=== PATIENT | female | born 1995 | race African-American/Black ===

== ENCOUNTER 2016-12-23 10:13 | Outpatient (CLI) | payer OTHER, MEDICAID ==
[2016-12-23 11:05] LABS: Hematocrit 40.9 % (30.3-42.9); Hemoglobin 14.2 gm/dl (10.1-14.3); Mean Corpuscular HGB Conc 35 % (30-34); Mean Corpuscular Hemoglobin 30 pg (28-32); Mean Corpuscular Volume 87 fl (79-97); Platelet Count 187 K/mm3 (140-440); Red Cell Distribution Width 14.3 % (13.2-15.2); White Blood Count 10.5 K/mm3 (4.5-11.0)
[2016-12-23 11:14] LABS: Bacteria,Urine 2+ /HPF (Negative); Bilirubin,Urine NEG (Negative); Blood,Urine NEG (Negative); Ketones,Urine NEG (Negative); Leukocyte Esterase,Urine LG (Negative); Nitrite,Urine NEG (Negative); Protein,Urine <15 mg/dL mg/dL (Negative); Urobilinogen,Urine < 2.0 mg/dL (<2.0)
[2016-12-23 11:23] LABS: Lactate Dehydrogenase 220 units/L (91-180); Uric Acid 3.7 mg/dL (3.5-7.6)
[2016-12-23 11:38] LABS: Alanine Aminotransferase 13 units/L (7-56)
[2016-12-23 12:34] VITALS: BP 129/75
== END 2016-12-23 12:45 | disposition home or self-care (01) ==
LOC: TRG 10:13
PROVIDERS: ATTEND Obstetrics & Gynecology
DX: O47.1 False labor at or after 37 completed weeks of gestation (principal); Z3A.38 38 weeks gestation of pregnancy
CPT/HCPCS: 36415; 59025; 81001; 82565; 83615; 84450; 84460; 84550; 85027

== ENCOUNTER 2016-12-30 04:51 | Inpatient (IN) | payer BC, MEDICAID ==
--- NOTE | 2016-12-29 16:32 | History and Physical Report ---
History of Present Illness Date of examination: 12/23/16 History of present illness: Past Medical History: Reviewed history from 10/29/2013 and no changes required: Negative Past Medical History Past Surgical History: Reviewed history from 07/04/2014 and no changes required: Cyst on face removed (09/2012) (07/04/2014) Past Medical History Abnormal PAP: negative KENNY Exposure: negative Infertility: negative Uterine Anomaly: negative Uterine Surgery (not C/S): negative Other Gynecologic Problems: negative Social Hx: Patient is single Customer Service Infection History Hx of STD: none HIV Risk Eval: low risk Hepatitis B Risk Eval: low risk Personal hx. of genital herpes: no Partner hx. of genital herpes: no Rash, Viral, or Febrile illness since last LMP? no Varicella/Chicken Pox Status: Previous Disease TB Risk: no Genetic History Congenital Heart Defect: Mom: no Dad: no John Disease: Mom: no Dad: no Thalassemia Mom: no Dad: no Neural Tube Defect Mom: no Dad: no Down's Syndrome Mom: no Dad: no Mayo-Sachs Mom: no Dad: no Sickle Cell Disease/Trait Mom: no Dad: no Hemophilia Mom: no Dad: no Muscular Dystrophy Mom: no Dad: no Cystic Fibrosis Mom: no Dad: no [place] Chorea Mom: no Dad: no Mental Retardation Mom: no Dad: no Fragile X Mom: no Dad: no Other Genetic/Chromosomal Disorder Mom: no Dad: no Child w/other defect Mom: no Dad: no Enviromental Exposures Xray Exposure: no Medication, drug, or alcohol use since LMP: no Chemical/Other Exposure: no Exposure to Cat Liter: no Hx of Parvovirus (Fifth Disease): no Occupational Exposure to Children: none FALSECurrent Allergies (reviewed today): * SEAFOOD (Critical) Past History - Obstetrical History Expected Date of Delivery: 01/05/17 Actual Gestation: 39 Week(s) 0 Day(s) : 2 Medications and Allergies Allergies Allergy/AdvReac Type Severity Reaction Status Date / Time shellfish derived Allergy Rash Verified 10/01/13 11:18 Home Medications Medication Instructions Recorded Confirmed Last Taken Type Vit#96/Ferrous Fum/FA 1 each PO QDAY 07/02/14 12/23/16 07/01/14 History [ Tablet] Active Meds: Active Medications Citric Acid/Sodium Citrate (Bicitra) 30 ml PO ONCE ONE Stop: 12/30/16 05:31 Famotidine (Pepcid) 20 mg IV ONCE ONE Stop: 12/30/16 05:31 Oxytocin/Sodium Chloride (Pitocin/Ns 20 Unit/1000ml Drip) 20 units in 1,000 mls @ 0 mls/hr IV TITR ANABEL PRN Reason: As Directed Metoclopramide HCl (Reglan) 10 mg IV ONCE ONE Stop: 12/30/16 05:31 Results All other labs normal. Assessment and Plan - Patient Problems (1) 39 weeks gestation of Status: Acute (2) Maternal care for scar from previous delivery Status: Acute Qualifiers: Previous delivery type: P (3) Gestational diabetes mellitus Status: Acute Qualifiers: Gestational diabetes mellitus control: G Trimester: T
[2016-12-30] MEDS ORDERED: REGLAN IV ONE (05:30)
[2016-12-30] MEDS ORDERED: BICITRA PO ONE (05:30)
[2016-12-30] MEDS ORDERED: PITOCin/NS 20 UNIT/1000ML DRIP 20 UNITS/1,000 ML BAG IV SCH ×2 (05:30→11:00)
[2016-12-30] MEDS ORDERED: ANCEF/STERILE WATER 2 GM/20 ML 2 GM/20 ML SYRINGE IV NR (05:30)
[2016-12-30] MEDS ORDERED: PEPCID IV ONE (05:30)
[2016-12-30] MEDS ORDERED: LACTATED RINGERS 1,000 ML ONE (05:47)
[2016-12-30 06:02] LABS: Basophils % (Auto) 0.4 % (0.0-1.8); Eosinophils % (Auto) 1.5 % (0.0-4.3); Hematocrit 40.2 % (30.3-42.9); Hemoglobin 13.9 gm/dl (10.1-14.3); Mean Corpuscular HGB Conc 35 % (30-34); Mean Corpuscular Hemoglobin 30 pg (28-32); Mean Corpuscular Volume 88 fl (79-97); Platelet Count 199 K/mm3 (140-440); Red Blood Count 4.59 M/mm3 (3.65-5.03); Red Cell Distribution Width 14.6 % (13.2-15.2); White Blood Count 11.4 K/mm3 (4.5-11.0)
[2016-12-30] MEDS: LACTATED RINGERS 1,000 ML IV SCH ×2 (06:23→06:29)
--- NOTE | 2016-12-30 07:18 | Anesthesia Consultation ---
Anesthesia Consult and Med Hx Date of service: 12/30/16 - Airway Anesthetic Teeth Evaluation: Good ROM Head & Neck: Adequate Mental/Hyoid Distance: Adequate Mallampati Class: Class II Intubation Access Assessment: Probably Good - Pre-Operative Health Status ASA Pre-Surgery Classification: ASA2 Proposed Anesthetic Plan: Spinal - Pulmonary Hx Smoking: No Hx Asthma: No COPD: No Hx Pneumonia: No - Cardiovascular System Hx Hypertension: Yes Hx Heart Murmur: Yes - Central Nervous System Hx Seizures: No Hx Psychiatric Problems: No - Gastrointestinal Hx Gastroesophageal Reflux Disease: No - Endocrine Hx Renal Disease: No Hx End Stage Renal Disease: No Hx Hypothyroidism: No Hx Hyperthyroidism: No - Hematic Hx Anemia: No Hx Sickle Cell Disease: No - Other Systems Hx Alcohol Use: No Hx Obesity: No
--- NOTE | 2016-12-30 07:18 | Anesthesia Day of Surgery ---
Anesthesia Day of Surgery - Day of Surgery Patient Examined: Yes Patient H&P Reviewed: Yes Patient is NPO: Yes
[2016-12-30] MEDS ORDERED: BENADRYL IV PRN (07:30)
[2016-12-30] MEDS ORDERED: MORPHINE ONE (07:33)
[2016-12-30] MEDS ORDERED: ePHEDrine SULFATE ONE (07:47)
[2016-12-30] MEDS ORDERED: NACL 0.9% IR ONE (07:55)
[2016-12-30] MEDS ORDERED: WATER FOR IRRIG STERILE IR ONE (07:55)
[2016-12-30] MEDS ORDERED: DILAUDID IV PRN (08:00)
[2016-12-30] MEDS ORDERED: fentaNYL-BUPIV 2 MCG/ML-0.125% 200 MCG/100 ML BAG EPIDURAL SCH (08:00)
[2016-12-30] MEDS ORDERED: SODIUM CHLORIDE FLUSH SYRINGE 10 ML IV PRN ×2 (08:00→11:30)
[2016-12-30] MEDS ORDERED: ZOFRAN IV PRN (08:00)
[2016-12-30] MEDS ORDERED: NARCAN 0.4 MG/1 ML IV PRN ×2 (08:00→11:30)
[2016-12-30] MEDS ORDERED: TORADOL IV PRN (08:00)
[2016-12-30] MEDS ORDERED: ZOFRAN ONE (08:39)
[2016-12-30] MEDS ORDERED: MAGNESIUM SULFATE 40GM/1000ML 40 GM/1,000 ML BAG IV ONE (09:21)
--- NOTE | 2016-12-30 09:38 | Operative Report ---
Operative Report Operative Report: Date of procedure: 12/30/2016 Pre-operative diagnosis: 1. Intrauterine at 39 weeks 2. Previous delivery desires repeat 3. Gestational diabetes 4. Preeclampsia 5. Keloid Post-operative diagnosis: 1. Intrauterine at 39 weeks 2. Previous delivery desires repeat 3. Gestational diabetes 4. Preeclampsia 5. Keloid Procedure name(s): 1. Low transverse section 2. Excision of keloid scar Surgeon: Rukhsana Tomas MD Fire Lieutenant: Anny Enriquez Anesthesia: Epidural EBL: 600 mL Complications: None Findings: Liveborn male infant. Weight 7 lbs. 6 oz. Apgars 8 at 1 minute and 8 at 5 minutes. Grossly normal uterus tubes and ovaries. Procedure: After risks, benefits, and complications and alternatives and consequences, were discussed with patient, and she voiced her understanding and desired to proceed. Patient was taken to the OR, where epidural anesthesia was bolused. She was then placed in the left lateral tilt position, and prepped and draped in the usual sterile fashion. After timeout was performed, a Pfannenstiel incision was made and extended to the fascia. The fascia was incised and extended in a lateral direction. The overlying fascia was sharply dissected away from the underlying rectus muscles in the superior-inferior direction. The midline was entered bluntly. The vesicouterine fold was incised and with blunt and sharp dissection the bladder flap was created. A transverse incision was made in the lower uterine segment and extended in the superior lateral direction with finger fractionation. Clear fluid was noted. The was delivered from the cephalic position.The cord was doubly clamped and cut. The 's mouth and nose were bulb suctioned. And the was given to the resuscitation team present. The placenta was manually extracted. The uterus was exteriorized and cleaned any products of conception and placental tissue. The incision was reapproximated using 0 Vicryl in a running interlocking stitch. Grossly normal tubes and ovaries were noted. Once hemostasis was noted, the uterus was allowed back into the pelvic cavity. The pelvis was irrigated with warm normal saline. Once hemostasis was noted, Tisseel was applied to the anterior surface of the incision. Once hemostasis was noted, Interceed was applied to the anterior aspect of the uterus for adhesion prevention. The peritoneum was approximated using 0 Vicryl in interrupted suture. Once hemostasis was noted, attention was turned to the rectus muscles. Once hemostasis was noted, the fascia was reapproximated using 0 Vicryl in a simple running stitch. Once hemostasis was noted, the incision was irrigated with normal saline. The keloid scar of her incision was excised. The incision was then reapproximated using 4-0 Vicryl on a Enrrique needle in a subcuticular manner. Patient tolerated the procedure well she was taken to recovery room in stable condition. Counts were correct 3
[2016-12-30] MEDS ORDERED: TYLENOL PO PRN (11:00)
[2016-12-30] MEDS ORDERED: TUCKS PAD TP PRN (11:00)
[2016-12-30] MEDS ORDERED: LANSINOH TP PRN (11:00)
[2016-12-30] MEDS ORDERED: APRESOLINE IV PRN (11:00)
[2016-12-30] MEDS ORDERED: LACTATED RINGERS 1,000 ML IV SCH (11:00)
[2016-12-30] MEDS ORDERED: PHENERGAN PR PRN (11:00)
[2016-12-30] MEDS ORDERED: TYLENOL PR PRN (11:00)
[2016-12-30] MEDS ORDERED: MAGNESIUM SULFATE 40GM/1000ML 40 GM/1,000 ML BAG IV SCH (11:00)
[2016-12-30] MEDS ORDERED: MORPHINE IV PRN ×2 (11:00)
[2016-12-30] MEDS ORDERED: ANUCORT-HC PR PRN (11:00)
[2016-12-30] MEDS ORDERED: CALCIUM GLUCONATE IV PRN (11:00)
[2016-12-30 13:40] LABS: Alanine Aminotransferase 12 units/L (7-56); Albumin/Globulin Ratio 1.4 %; Alkaline Phosphatase 176 units/L (35-129); Total Protein 5.1 g/dL (6.3-8.2); Uric Acid 3.5 mg/dL (3.5-7.6)
[2016-12-30 13:53] LABS: Bilirubin,Direct < 0.2 mg/dL (0-0.2)
[2016-12-30] MEDS: ANCEF/NS 1 GM/50 ML 1 GM/50 ML BAG IV SCH (18:27)
[2016-12-30] MEDS: PERCOCET 5/325 PO PRN (19:51)
[2016-12-30 20:26] LABS: Hemoglobin 13.7 gm/dl (10.1-14.3)
[2016-12-30] MEDS ORDERED: MILK OF MAGNESIA PO PRN (22:00)
[2016-12-31] MEDS: ANCEF/NS 1 GM/50 ML 1 GM/50 ML BAG IV SCH (02:25)
[2016-12-31] MEDS ORDERED: BOOSTRIX IM ONE (06:00)
[2016-12-31] MEDS: PERCOCET 5/325 PO PRN ×3 (08:50→22:04)
--- NOTE | 2016-12-31 11:47 | Progress Note ---
Assessment and Plan - Patient Problems (1) Pre-eclampsia affecting childbirth Current Visit: Yes Status: Acute (2) Maternal care for scar from previous delivery Current Visit: Yes Status: Acute Qualifiers: Previous delivery type: P (3) 40 weeks gestation of Current Visit: No Status: Acute (4) delivery delivered Current Visit: No Status: Acute (5) Gestational diabetes mellitus Current Visit: No Status: Acute Qualifiers: Gestational diabetes mellitus control: G Trimester: T Subjective - Subjective Date of service: 12/31/16 Principal diagnosis: IUP term, repeat c/s, PreE Interval history: Patient admitted for repeat c/s at term, recieved Mag pp for dx of PreE. Bps ok and Mag d/c this am at 0600. Hct 40 Otherwise normal pp c/s course. No c/o today Patient reports: appetite normal, no voiding normally (pemberton just out) : doing well Objective - Vital Signs Latest vital signs: Vital Signs Temp Pulse Pulse Resp Resp BP BP 12/31/16 08:50 18 12/31/16 07:47 98.3 F 84 20 130/90 12/31/16 03:00 98.4 F 12/31/16 00:05 98.4 F 88 20 123/58 12/30/16 21:00 98.4 F 87 20 140/84 12/30/16 19:50 16 12/30/16 18:24 98 H 20 148/74 12/30/16 16:10 98.4 F 94 H 20 128/66 12/30/16 14:10 102 H 20 121/76 12/30/16 12:30 98.1 F 90 20 132/80 Intake and Output 12/30/16 12/31/16 12/31/16 22:59 06:59 14:59 Intake Total 1295 625 120 Output Total 2900 1400 Balance -1605 625 -1280 Intake: IV 1175 625 ANCEF/NS 1 GM/50 ML 1 gm 50 In 50 ml @ 100 mls/hr IV Q8H ANABEL Rx#:[id number] Lactated Ringers 1,000 ml 305 @ 125 mls/hr IV DIRECT ANABEL Rx#:[id number] MAGNESIUM SULFATE 40GM/ 450 250 1000ML 40 gm In 1,000 ml @ 2 GM/HR 50 mls/hr IV TITR ANABEL Rx#:[id number] PITOCin/NS 20 UNIT/1000ML 675 70 DRIP 20 units In 1,000 ml @ 250 mls/hr IV DIRECT ANABEL Rx#:[id number] Oral 120 120 Output: Urine 2900 1400 Indwelling Catheter 2900 1400 Other: Total, Intake Amount 120 120 Total, Output Amount 1200 500 # Voids Indwelling Catheter 3 - Exam Breasts: Present: deferred Abdomen: Present: normal appearance, soft Uterus: Present: firm Extremities: Present: normal Incision: Present: normal - Labs Labs: Abnormal lab results 12/30/16 12/30/16 12/31/16 Range/Units 12:47 20:03 01:08 Creatinine 0.5 L (0.7-1.2) mg/dL Magnesium 3.30 H 4.70 H 5.30 H (1.7-2.3) mg/dL Alkaline Phosphatase 176 H (35-129) units/L Total Protein 5.1 L (6.3-8.2) g/dL Albumin 3.0 L (3.9-5) g/dL 12/31/16 Range/Units 06:11 Creatinine (0.7-1.2) mg/dL Magnesium 5.50 H (1.7-2.3) mg/dL Alkaline Phosphatase (35-129) units/L Total Protein (6.3-8.2) g/dL Albumin (3.9-5) g/dL
[2016-12-31] MEDS ORDERED: FLUARIX QUAD 2016-2017(36 MOS+) IM ONE (12:00)
[2017-01-01] MEDS: PERCOCET 5/325 PO PRN (05:48)
--- NOTE | 2017-01-01 10:39 | Discharge Summary ---
Providers - Providers Date of Admission: 12/30/16 04:51 Date of discharge: 01/01/17 Attending physician: SAUL MCMULLEN 12/30/16 10:43 Consult to Farm Marketer [CONS] Routine Reason For Exam: Primary care physician: SAUL MCMULLEN Hospitalization Reason for admission: section Delivery: Procedure: repeat low transverse Incision: normal, dry, intact Other procedures: none complications: other (pre-eclamplsia, received Mag) Discharge diagnosis: IUP at term delivered Maribel baby: male Pertinent studies: Hct 40 Hospital course: repeat c/s with nl pp course, was Mag for mild PreE, BP ok on d/c, also GDM Condition at discharge: Good Disposition: DISCHARGED TO HOME OR SELFCARE - Discharge Diagnoses (1) delivery delivered Status: Acute (2) Pre-eclampsia affecting childbirth Status: Acute (3) Gestational diabetes mellitus Status: Acute Qualifiers: Gestational diabetes mellitus control: diet-controlled Trimester: T Comment: will plan 2hr GTT @ 6 weeks (4) Maternal care for scar from previous delivery Status: Acute Qualifiers: Previous delivery type: P (5) 40 weeks gestation of Status: Acute Plan - Discharge Medications Prescriptions: Ibuprofen [Motrin 800 MG tab] 800 mg PO TID PRN #30 tablet PRN Reason: Pain Lidocain2.5%/Prilocai2.5% [Emla] 5 gm TP ONCE #1 tube oxyCODONE /ACETAMINOPHEN [Percocet 5/325 mg] 1 - 2 tab PO Q4HR PRN #30 tablet PRN Reason: Pain - Provider Discharge Summary Activity: no sex for 6 weeks, no heavy lifting 4 weeks, no strenuous exercise Diet: routine Instructions: routine Additional instructions: [] Smoking cessation referral if applicable(refer to patient education folder for contact #) [] Refer to [facility] Booklet Call your doctor immediately for: * Fever > 100.5 * Heavy vaginal bleeding ( >1 pad per hour) * Severe persistent headache * Shortness of breath * Reddened, hot, painful area to leg or breast * Drainage or odor from incision. * Keep incision clean and dry at all times and follow doctor's instructions regarding bathing/showering - Follow up plan Follow up: SAUL MCMULLEN MD [Primary Care Provider] - 7 Days
[2017-01-01 12:54] VITALS: BP 122/80
== END 2017-01-01 13:14 | disposition home or self-care (01) | DRG 765 ==
LOC: APU 04:51 → OB 10:31
PROVIDERS: ADMIT Obstetrics & Gynecology; ATTEND Obstetrics & Gynecology
PROC: 10D00Z1 Extraction of Products of Conception, Low, Open Approach (ICD-10-PCS; principal; 2016-12-30)
DX: O34.211 Maternal care for low transverse scar from previous cesarean delivery (principal); O11.4 Pre-existing hypertension with pre-eclampsia, complicating childbirth; O24.429 Gestational diabetes mellitus in childbirth, unspecified control; N85.8 Other specified noninflammatory disorders of uterus; L91.0 Hypertrophic scar; Z37.0 Single live birth; Z91.013 Allergy to seafood; Z3A.39 39 weeks gestation of pregnancy
CPT/HCPCS: 36415; 80074; 82565; 82962; 83735; 84550; 85014; 85018; 85025; 86592; 86850; 86900; 86901; 90471; 90715; 99211; A6250; C1765; C9250; G0463; J0690; J2270; J2405; J2590; J2765; J3475; J7120

== ENCOUNTER 2017-08-23 10:41 | Emergency (ER) | payer MEDICAID ==
[2017-08-23 12:20] VITALS: BP 144/90
[2017-08-23 12:40] LABS: Basophils % (Auto) 0.3 % (0.0-1.8); Eosinophils # (Auto) 0.1 K/mm3 (0.0-0.4); Eosinophils % (Auto) 0.7 % (0.0-4.3); Hematocrit 43.5 % (30.3-42.9); Lymphocytes # (Auto) 1.9 K/mm3 (1.2-5.4); Lymphocytes % (Auto) 18.2 % (13.4-35.0); Mean Corpuscular HGB Conc 34 % (30-34); Mean Corpuscular Hemoglobin 30 pg (28-32); Mean Corpuscular Volume 86 fl (79-97); Monocytes # (Auto) 0.4 K/mm3 (0.0-0.8); Monocytes % (Auto) 4.2 % (0.0-7.3); Platelet Count 284 K/mm3 (140-440); Red Blood Count 5.07 M/mm3 (3.65-5.03); Red Cell Distribution Width 13.6 % (13.2-15.2)
[2017-08-23 12:57] LABS: Alanine Aminotransferase 16 units/L (7-56); Albumin 4.1 g/dL (3.9-5); BUN/Creatinine Ratio 10; Blood Urea Nitrogen 4 mg/dL (7-17); Calcium 9.2 mg/dL (8.4-10.2); Hemolysis Index 21
[2017-08-23 13:20] LABS: Bacteria,Urine 3+ /HPF (Negative); Bilirubin,Urine NEG (Negative); Blood,Urine SM (Negative); Color,Urine Yellow (Yellow); Mucus,Urine 2+ /HPF; Nitrite,Urine NEG (Negative); Protein,Urine <15 mg/dL mg/dL (Negative); Renal Epithelial Cells,Urine <1 /LPF; Urobilinogen,Urine < 2.0 mg/dL (<2.0)
== END 2017-08-23 19:50 | disposition left against medical advice (07) ==
LOC: ED 10:41
DX: R10.9 Unspecified abdominal pain (principal); Z53.21 Procedure and treatment not carried out due to patient leaving prior to being seen by health care provider
CPT/HCPCS: 36415; 80053; 81001; 84703; 85025

== ENCOUNTER 2019-12-02 18:48 | Emergency (ER) | payer SELFPAY ==
[2019-12-02 19:00] VITALS: BP 123/88
[2019-12-02 19:25] LABS: Hematocrit 44.8 % (30.3-42.9); Hemoglobin 15.5 gm/dl (10.1-14.3); Mean Corpuscular HGB Conc 35 % (30-34); Mean Corpuscular Volume 85 fl (79-97); Platelet Count 299 K/mm3 (140-440); Red Blood Count 5.29 M/mm3 (3.65-5.03); Red Cell Distribution Width 13.7 % (13.2-15.2)
--- NOTE | 2019-12-02 20:10 | Emergency Department Report ---
ED HPI - General Chief complaint: Vaginal Bleeding Stated complaint: POSS MISCARRIAGE Time Seen by Provider: 12/02/19 19:45 Source: patient Mode of arrival: Ambulatory Limitations: No Limitations - History of Present Illness Initial comments: Ms. Cotto is a 24-year-old female who speaks Syrian, patient complains of vaginal bleeding times this a.m. She denies fevers or chills. No nausea vomiting. No back pain. Symptoms include 5/10 cramps, symptoms are exacerbated by movement. Symptoms are relieved by nothing tried. Patient states she is 6 weeks . She is G3, P2, A0. Patient states scant spotting at this time. Last menstrual cycle 8 weeks ago. MD Complaint: abdominal pain, vaginal bleeding Onset/Timin,800 -: hour(s) (10) Location: pelvis Radiation: LLQ, RLQ Severity: moderate Severity scale (0 -10): 3 Quality: stabbing Consistency: intermittent Improves with: none Worsens with: movement Associated symptoms: vaginal bleeding, abdominal pain. denies: vaginal discharge, dysuria, headache, malaise, dysparuenia, rash, seizure, shortness of breath, syncope, weakness Vaginal bleeding: light :: Yes Number of weeks : 6 OB History - Current : no complications OB History - Previous Pregnancies: no complications - Related Data : 3 Para: 2 Ab: 1 Home Medications Medication Instructions Recorded Confirmed Last Taken Vits96/Iron Fum/Folic 1 each PO QDAY 07/02/14 12/30/16 07/01/14 [ Tablet] Previous Rx's Medication Instructions Recorded Last Taken Type Ibuprofen [Motrin 800 MG tab] 800 mg PO TID PRN #30 tablet 12/30/16 Unknown Rx Lidocain2.5%/Prilocai2.5% [Emla] 5 gm TP ONCE #1 tube 12/30/16 Unknown Rx oxyCODONE /ACETAMINOPHEN [Percocet 1 - 2 tab PO Q4HR PRN #30 tablet 12/30/16 Unknown Rx 5/325 mg] Nitrofurantoin Trigg/M-Cryst 100 mg PO BID 7 Days #14 capsule 12/02/19 Unknown Rx [Macrobid CAP] metroNIDAZOLE [Flagyl] 500 mg PO BID 7 Days #14 tab 12/02/19 Unknown Rx Allergies Allergy/AdvReac Type Severity Reaction Status Date / Time shellfish derived Allergy Rash Verified 10/01/13 11:18 ED Review of Systems ROS: Stated complaint: POSS MISCARRIAGE Other details as noted in HPI Constitutional: denies: chills, fever Eyes: denies: eye pain, eye discharge, vision change ENT: denies: ear pain, throat pain Respiratory: no symptoms reported. denies: cough, shortness of breath, wheezing Cardiovascular: denies: chest pain, palpitations Endocrine: no symptoms reported Gastrointestinal: denies: abdominal pain, nausea, diarrhea ED Past Medical Hx - Past Medical History Hx Hypertension: Yes Hx Congestive Heart Failure: No Hx Diabetes: No Hx Deep Vein Thrombosis: No Hx Renal Disease: No Hx Sickle Cell Disease: No Hx Headaches / Migraines: Yes (MIGRAINES) Hx Seizures: No Hx Asthma: No Hx COPD: No Hx HIV: No - Surgical History Additional Surgical History: x 2 - Social History Smoking Status: Never Smoker Substance Use Type: None - Medications Home Medications: Home Medications Medication Instructions Recorded Confirmed Last Taken Type Vits96/Iron Fum/Folic 1 each PO QDAY 07/02/14 12/30/16 07/01/14 History [ Tablet] Ibuprofen [Motrin 800 MG tab] 800 mg PO TID PRN #30 tablet 12/30/16 Unknown Rx Lidocain2.5%/Prilocai2.5% [Emla] 5 gm TP ONCE #1 tube 12/30/16 Unknown Rx oxyCODONE /ACETAMINOPHEN [Percocet 1 - 2 tab PO Q4HR PRN #30 tablet 12/30/16 Unknown Rx 5/325 mg] Nitrofurantoin Trigg/M-Cryst 100 mg PO BID 7 Days #14 capsule 12/02/19 Unknown Rx [Macrobid CAP] metroNIDAZOLE [Flagyl] 500 mg PO BID 7 Days #14 tab 12/02/19 Unknown Rx ED Physical Exam - General Limitations: No Limitations General appearance: alert, in no apparent distress - Head Head exam: Present: atraumatic, normocephalic - Eye Eye exam: Present: normal appearance, EOMI Pupils: Present: normal accommodation - ENT ENT exam: Present: mucous membranes moist - Neck Neck exam: Present: normal inspection - Respiratory Respiratory exam: Present: normal lung sounds bilaterally. Absent: respiratory distress, wheezes, stridor, chest wall tenderness - Cardiovascular Cardiovascular Exam: Present: regular rate, normal rhythm, normal heart sounds. Absent: systolic murmur, diastolic murmur, rubs, gallop - GI/Abdominal GI/Abdominal exam: Present: soft, tenderness (mild superpubic ), normal bowel sounds. Absent: distended, guarding, rebound, rigid, bruit, hernia - Rectal Rectal exam: Present: deferred - External exam: Present: other (exam deferred by patient ) - Extremities Exam Extremities exam: Present: full ROM, normal capillary refill. Absent: tenderness, pedal edema - Back Exam Back exam: Present: normal inspection, full ROM. Absent: tenderness, CVA tenderness (R), CVA tenderness (L), vertebral tenderness, rash noted - Neurological Exam Neurological exam: Present: alert, oriented X3, normal gait, reflexes normal. Absent: motor sensory deficit - Psychiatric Psychiatric exam: Present: normal affect, normal mood - Skin Skin exam: Present: warm, dry, intact, normal color. Absent: rash ED Course Vital Signs 12/02/19 18:50 Temperature 98.1 F Pulse Rate 79 Respiratory 18 Rate Blood Pressure 123/88 O2 Sat by Pulse 99 Oximetry ED Medical Decision Making - Lab Data Result diagrams: 12/02/19 19:05 Labs 12/02/19 12/02/19 12/02/19 19:05 19:05 19:05 WBC 8.1 RBC 5.29 H Hgb 15.5 H Hct 44.8 H MCV 85 MCH 29 MCHC 35 H RDW 13.7 Plt Count 299 HCG, Quant < 2 Urine Color Urine Turbidity Urine pH Ur Specific [place] Urine Protein Urine Glucose (UA) Urine Ketones Urine Blood Urine Nitrite Urine Bilirubin Urine Urobilinogen Ur Leukocyte Esterase Urine WBC (Auto) Urine RBC (Auto) U Epithel Cells (Auto) Urine WBC Clumps Urine Mucus Urine Yeast (Budding) Blood Type O POSITIVE 12/02/19 20:42 WBC RBC Hgb Hct MCV MCH MCHC RDW Plt Count HCG, Quant Urine Color Red Urine Turbidity Cloudy Urine pH 6.0 Ur Specific [place] 1.026 Urine Protein 100 mg/dl Urine Glucose (UA) Neg Urine Ketones Neg Urine Blood Lg Urine Nitrite Neg Urine Bilirubin Neg Urine Urobilinogen < 2.0 Ur Leukocyte Esterase Neg Urine WBC (Auto) 127.0 H Urine RBC (Auto) > 182.0 U Epithel Cells (Auto) 3.0 Urine WBC Clumps 3+ Urine Mucus 3+ Urine Yeast (Budding) 1+ Blood Type - Radiology Data Radiology results: report reviewed, image reviewed Findings Reporting MD: Estefani Yin Dictation Time: December 02, 2019 20:05 Feed Crusher Operator: Not available Youth Care Specialist Date: EXAMINATION: Obstetrical Ultrasound INDICATION: Vaginal bleeding in early COMPARISON: None FINDINGS: The uterus is normal in size measuring 7.5 x 5.1 x 5.4 cm. The endometrial thickness measures a maximum of 9 mm. No intrauterine is visualized. The bilateral adnexal regions appear within normal limits. No free pelvic fluid is identified. IMPRESSION: 1. No sonographic evidence of intrauterine . Diagnostic considerations include failed or failing , too early to visualize or less likely ectopic . Please correlate with patient's clinical circumstances. Signer Name: Estefani Yin MD Signed: 12/02/2019 8:05 PM Workstation Name: [id number] NO IUP, no mass, no fluid collection - Medical Decision Making pt blood type is o pos, hcg: <2., cbc : normal, Ua: wbc, leuk, thi, pt denies concern for STI, attila vaginal discharge no fever or chills, no n/v pt tolerating po intak,e. US OB: NO IUP, no mass, no fluid collection, blood type is O pos, DX is Miscarriage, pt declines vaginal exam , pt tx with rocephin 1gm IM, Azithromycin, dc to home macrobid, flagyl, plan : follow up with YARD ASSOCIATE in 2- 3 days, return to emergency if symptoms worsen. Critical care attestation.: If time is entered above; I have spent that time in minutes in the direct care of this critically ill patient, excluding procedure time. ED Disposition Clinical Impression: Miscarriage, Threatened miscarriage in early UTI (urinary tract infection) Qualifiers: Urinary tract infection type: acute cystitis Hematuria presence: without hematuria Qualified Code(s): N30.00 - Acute cystitis without hematuria Disposition: DC-01 TO HOME OR SELFCARE Is pt being admited?: No Does the pt Need Aspirin: No Condition: Stable Instructions: Threatened Miscarriage (ED) Prescriptions: metroNIDAZOLE [Flagyl] 500 mg PO BID 7 Days #14 tab Nitrofurantoin Trigg/M-Cryst [Macrobid CAP] 100 mg PO BID 7 Days #14 capsule Referrals: PRIMARY CARE, [Primary Care Provider] - 3-5 Days BENITO GUERRERO MD [Staff Physician] - 3-5 Days Forms: Work/School Release Form(ED) Time of Disposition: 21:20
[2019-12-02 21:04] LABS: Bilirubin,Urine NEG (Negative); Blood,Urine LG (Negative); Color,Urine Red (Yellow); Mucus,Urine 3+ /HPF; Urobilinogen,Urine < 2.0 mg/dL (<2.0)
[2019-12-02 21:05] LABS: RBC,Urine > 182.0 /HPF (0.0-6.0)
--- NOTE | 2019-12-02 21:10 | Ultrasound Report ---
Please see report from transvaginal obstetrical ultrasound performed today. Signer Name: Estefani Yin MD Signed: 12/02/2019 9:06 PM Workstation Name: [id number]
--- NOTE | 2019-12-02 21:10 | Ultrasound Report ---
EXAMINATION: Obstetrical Ultrasound INDICATION: Vaginal bleeding in early COMPARISON: None FINDINGS: The uterus is normal in size measuring 7.5 x 5.1 x 5.4 cm. The endometrial thickness measures a maxim um of 9 mm. No intrauterine is visualized. The bilateral adnexal regions appear within normal limits. No free pelvic fluid is identified. IMPRESSION: 1. No sonographic evidence of intrauterine . Diagnostic considerations include failed or fa iling , too early to visualize or less likely ectopic . Please correlate with patient's clinical circumstances. Signer Name: Estefani Yin MD Signed: 12/02/2019 9:05 PM Workstation Name: [id number]
[2019-12-02] MEDS ORDERED: ONDANSETRON 4 MG ODT TAB PO ONE (21:15)
[2019-12-02] MEDS ORDERED: AZITHROMYCIN 250 MG TAB PO ONE (21:15)
[2019-12-02] MEDS ORDERED: LIDOCAINE-MPF (1%) 10 MG/1 ML VIAL 5 ML INFILTRATI ONE (21:15)
== END 2019-12-02 21:50 | disposition home or self-care (01) ==
LOC: ED 18:48
DX: O20.0 Threatened abortion (principal); O23.41 Unspecified infection of urinary tract in pregnancy, first trimester; I10 Essential (primary) hypertension; G43.909 Migraine, unspecified, not intractable, without status migrainosus; Z3A.01 Less than 8 weeks gestation of pregnancy; Z98.890 Other specified postprocedural states; Z79.1 Long term (current) use of non-steroidal anti-inflammatories (NSAID); Z79.899 Other long term (current) drug therapy; Z91.013 Allergy to seafood
CPT/HCPCS: 36415; 76801; 76817; 81001; 84702; 85027; 86900; 86901; 96372; 99284; J0696; Q0162

== ENCOUNTER 2021-11-28 01:38 | Emergency (ER) | payer SELFPAY | END 2021-11-28 09:49 | disposition left against medical advice (07) | LOC: ED 01:38 | DX: I10 Essential (primary) hypertension (principal); Z53.21 Procedure and treatment not carried out due to patient leaving prior to being seen by health care provider ==